=== PATIENT | female | born 1960 | race African-American/Black ===

== ENCOUNTER 2022-03-06 08:27 | Outpatient (CLI) | payer OTHER | END 2022-03-06 08:28 | disposition home or self-care (01) | LOC: CSHMRI 08:27 | PROVIDERS: ATTEND Neurological Surgery | DX: M54.16 Radiculopathy, lumbar region (principal); Z98.890 Other specified postprocedural states; M47.816 Spondylosis without myelopathy or radiculopathy, lumbar region | CPT/HCPCS: 72148 ==